=== PATIENT | female | born 1995 | race Caucasian/White ===

== ENCOUNTER 2018-06-07 00:23 | Emergency (ER) | payer OTHER ==
[2018-06-07] MEDS ORDERED: LIDOCAINE 4%/TETRACAINE 0.5%/EPI 0.18% 5 ML TOPICAL SOLN TOP ONE (01:04)
[2018-06-07] MEDS ORDERED: LIDOCAINE 1% INJ-PF (10 MG/ML) 30 ML SDV INJ ONE (01:04)
--- NOTE | 2018-06-07 02:07 | ER Document Report ---
ED General - General Chief Complaint: Laceration Stated Complaint: LIP LACERATION Time Seen by Provider: 06/07/18 01:00 Notes: Patient is a pleasant 22-year-old female presents with complaint of a right lower lip laceration that occurred when she was walking her dog and the leash came off the dog and retracted back and hit her in the face. No other complaints at this time. She denies any loose teeth. Last tetanus shot was approximately 3 months ago. TRAVEL OUTSIDE OF THE [place] IN LAST 30 DAYS: No - Related Data Allergies/Adverse Reactions: No Known Allergies Allergy (Verified 06/07/18 01:22) Past Medical History - Social History Smoking Status: Never Smoker Frequency of alcohol use: None Drug Abuse: None Family History: Reviewed & Not Pertinent Patient has suicidal ideation: No Patient has homicidal ideation: No Renal/ Medical History: Denies: Hx Peritoneal Dialysis Review of Systems - Review of Systems Notes: My Normal Review Basic REVIEW OF SYSTEMS: CONSTITUTIONAL : Denies fever, chills, or sweats. Denies recent illness. EENT: Lip laceration NEUROLOGICAL: Denies altered mental status or loss of consciousness. ALL OTHER SYSTEMS REVIEWED AND NEGATIVE. Physical Exam - Vital signs Vitals: Temp Pulse Resp BP Pulse Ox 98.2 F 90 17 132/87 H 96 06/07/18 00:27 06/07/18 00:27 06/07/18 00:27 06/07/18 00:27 06/07/18 00:27 - Notes Notes: General Appearance: Well nourished, alert, cooperative, no acute distress, no obvious discomfort. Vitals: reviewed, See vital signs table. Head: no swelling or tenderness to the head Eyes: PERRL, EOMI, Conjuctiva clear Mouth: Approximately 1 cm laceration of right lower lip with the edge of the laceration extending into the vermilion border. Patient also has a 1 cm laceration on the mucosal side of the right lower lip. This laceration is not gaping with opening closing of the mouth. Neuro: speech clear, oriented x 3, normal affect, responds appropriately to questions. Course - Re-evaluation Re-evalutation: 06/07/18 02:54 External lip laceration was sutured with 2 sutures. This was after his clinical with [facility] and flushed out with saline. I used 2 6-0 Ethilon sutures and this gave good skin approximation. The mucosal suture was not sutured closed as it is not gaping with normal movement of the left. This will reduce the risk of infection. Patient encouraged to eat soft foods and to stay away from foods that require chewing. She is encouraged to rinse her mouth each time with water after eating. She is encouraged to return to ER if there is any redness or swelling to the lip. Patient agrees with plan and will be discharged home. Dictation of this chart was performed using voice recognition software; therefore, there may be some unintended grammatical errors. - Vital Signs Vital signs: Temp Pulse Resp BP Pulse Ox 99.1 F 73 20 122/65 100 06/07/18 02:38 06/07/18 02:38 06/07/18 02:38 06/07/18 02:38 06/07/18 02:38 Procedures - Laceration/Wound Repair right lower lip Wound length (cm): 1 Wound's Depth, Shape: Linear Wound explored: Clean Discharge - Discharge Clinical Impression: Lip laceration Qualifiers: Encounter type: initial encounter Qualified Code(s): S01.511A - Laceration without foreign body of lip, initial encounter Condition: Good Disposition: HOME, SELF-CARE Additional Instructions: Please eat soft foods for the next 3 days. Always rinse your mouth with water after eating. Please have sutures removed in 5 days by a physician or nurse. Please return to the ER immediately if you develop any redness or signs f infection to your lip or face.
[2018-06-07 02:44] VITALS: BP 122/65
== END 2018-06-07 02:43 | disposition home or self-care (01) ==
LOC: ER 00:23
DX: S01.511A Laceration without foreign body of lip, initial encounter (principal); W20.8XXA Other cause of strike by thrown, projected or falling object, initial encounter; Y93.K1 Activity, walking an animal
CPT/HCPCS: 99282; 12011; J3490 ×2

== ENCOUNTER 2018-06-12 09:54 | Emergency (ER) | payer OTHER ==
[2018-06-12 10:05] VITALS: BP 117/64
--- NOTE | 2018-06-12 10:06 | ER Document Report ---
HPI - HPI Time Seen by Provider: 06/12/18 10:06 Pain Level: Denies Notes: Patient is an otherwise healthy 22-year-old female who presents with chief complaint of request for suture removal. Patient has 2 sutures to her right upper lip. She states that been in place for 6 days. Patient denies any other complaints today. Past Medical History - General Information source: Patient - Social History Smoking Status: Never Smoker Frequency of alcohol use: None Drug Abuse: None Family History: Reviewed & Not Pertinent - Medical History Medical History: Negative Renal/ Medical History: Denies: Hx Peritoneal Dialysis Surgical Hx: Negative - Immunizations Immunizations up to date: Yes Vertical Provider Document - CONSTITUTIONAL Notes: PHYSICAL EXAMINATION: GENERAL: Well-appearing, well-nourished and in no acute distress. HEAD: Atraumatic, normocephalic. EYES: Pupils equal round extraocular movements intact, conjunctiva are normal. ENT: Nares patent NECK: Normal range of motion LUNGS: No respiratory distress Musculoskeletal: Normal range of motion NEUROLOGICAL: Normal speech, normal gait. PSYCH: Normal mood, normal affect. SKIN: Warm, Dry, normal turgor, no rashes or lesions noted. Well-healing laceration noted to right upper lip, [address], ready to be removed. Mildly scabbed over. - INFECTION CONTROL TRAVEL OUTSIDE OF THE [place] IN LAST 30 DAYS: No Course - Re-evaluation Re-evalutation: 06/12/18 10:11 Sutures removed. Patient discharged home in stable condition. - Vital Signs Vital signs: Temp Pulse Resp BP Pulse Ox 98.5 F 73 16 117/64 98 06/12/18 10:04 06/12/18 10:04 06/12/18 10:04 06/12/18 10:04 06/12/18 10:04 Discharge - Discharge Clinical Impression: Visit for suture removal Condition: Stable Disposition: HOME, SELF-CARE Additional Instructions: Your sutures were removed today. Please continue to use bacitracin ointment to the area twice daily. Once the area has completely healed over and the scab is gone you may start to use a scar cream if you choose. Please placed sunscreen on the area if you are exposed to sunlight.
== END 2018-06-12 10:15 | disposition home or self-care (01) ==
LOC: ER 09:54
DX: S01.511D Laceration without foreign body of lip, subsequent encounter (principal); X58.XXXD Exposure to other specified factors, subsequent encounter